=== PATIENT | male | born 1960 ===

== ENCOUNTER 2023-01-28 22:56 | Emergency (ER) | payer OTHER ==
[~2023-01-28] VITALS: Ht 170.2 cm; Wt 97.5 kg
[2023-01-29 01:06] VITALS: BP 124/84
[2023-01-29] MEDS ORDERED: OZEMPIC0.25 MG/01 SQ (01:07)
[2023-01-29] MEDS ORDERED: PRAV20 PO (01:08)
[2023-01-29] MEDS ORDERED: METFORMIN HCL500 M2 PO (01:08)
[2023-01-29] MEDS ORDERED: LOSARTAN-HCTZ1 EAC5 PO (01:08)
== END 2023-01-29 01:40 | disposition home or self-care (01) ==
LOC: ER 22:56
DX: H16.133 Photokeratitis, bilateral (principal); W89.8XXA Exposure to other man-made visible and ultraviolet light, initial encounter; Z79.899 Other long term (current) drug therapy; Z79.84 Long term (current) use of oral hypoglycemic drugs
CPT/HCPCS: 99283; A9270

== ENCOUNTER 2023-07-03 07:52 | Day surgery (SDC) | payer OTHER ==
[2023-07-03] VITALS (15 sets, daily range): BP systolic 112–139; BP diastolic 76–91
[~2023-07-03] VITALS: Ht 172.7 cm; Wt 89.8 kg
[~2023-07-03 07:52] MED LIST: Aspir 8181 MG PO; LOSARTAN-HCTZ1 EAC5 PO; METFORMIN HCL500 M2 PO; OZEMPIC0.25 MG/01 SQ; PRAV20 PO; TRAZ50 PO
--- NOTE | 2023-07-03 08:40 | NUR ---
PT TO DAY SURGERY FOR COLONOSCOPY. IS WAITING AT HOSPITAL AND WILL BE RIDE HOME. PLAN OF CARE DISCUSSED, QUESTIONS ANSWERED.
--- NOTE | 2023-07-03 09:31 | NUR ---
07/03/23 0931 Anthony Marina HISTORY, CHART, MEDICATIONS AND ALLERGIES REVIEWED BEFORE START OF PROCEDURE. PATIENT CONFIRMS NPO STATUS AND AGREES WITH SCHEDULED PROCEDURE. 3-LEAD EKG REVIEWED WITH PHYSICIAN PRIOR TO START OF PROCEDURE. MONITOR INTACT WITH CONTINUOUS PULSE OXIMETRY,CAPNOGRAPHY, 3-LEAD EKG, INTERMITTENT BP. SUPPLEMENTAL O2 TO BE TITRATED THROUGHOUT PROCEDURE TO MAINTAIN O2 SATURATION ABOVE 90%. PATIENT DETERMINED TO BE ASA APPROPRIATE FOR PROPOFOL SEDATION PRIOR TO START OF PROCEDURE BY DR. MAGALLANES.
--- NOTE | 2023-07-03 10:17 | NUR ---
DISCHARGE NOTE PT A&OX4, BREATHING RA, VSS, TOLERATING PO FLUIDS, ABDOMEN SOFT AND NON TENDER, NO COMPLAINTS. Discharge instructions reviewed with patient. Patient verbalizes understanding. Copy given to patient to take home.Ambulatory in Day Surgery Discharged via wheelchair to private car for ride home.
== END 2023-07-03 10:15 | disposition home or self-care (01) ==
LOC: ORSCMMR 07:52 → ORD 09:00 → ORSCMMR 10:15
PROVIDERS: Internal Medicine Gastroenterology
PROC: 0DJD8ZZ Inspection of Lower Intestinal Tract, Via Natural or Artificial Opening Endoscopic (ICD-10-PCS; principal; 2023-07-03 09:00)
DX: K62.5 Hemorrhage of anus and rectum (principal); R19.4 Change in bowel habit; K64.8 Other hemorrhoids; E78.00 Pure hypercholesterolemia, unspecified; K56.699 Other intestinal obstruction unspecified as to partial versus complete obstruction; I10 Essential (primary) hypertension; E11.9 Type 2 diabetes mellitus without complications; Z79.85 Long-term (current) use of injectable non-insulin antidiabetic drugs; Z79.82 Long term (current) use of aspirin; Z79.899 Other long term (current) drug therapy
CPT/HCPCS: 82947; J2704; J7120